=== PATIENT | male | born 1970 | race Caucasian/White ===

== ENCOUNTER 2025-01-30 13:56 | Emergency (ER) | payer BC, SELFPAY ==
[2025-01-30 14:03] VITALS: BP 147/95
[2025-01-30 14:33] LABS: % Basophils 0.3 % (0-2); % Eosinophils 0.7 % (0-6); % Immature Granulocytes 0.5 % (0-0.5); % Lymphocytes 23.7 % (20.5-51.1); % Monocytes 9.2 % (1.7-9.3); % Neutrophils 65.6 % (42.2-75.2); Absolute Eosinophils 0.1 10^3/uL (0-0.7); Absolute Lymphocytes 1.8 10^3/uL (1.2-3.4); Absolute Monocytes 0.7 10^3/uL (0.1-0.6); Hematocrit 41.7 % (39.0-52.0); Hemoglobin 14.3 g/dL (13.0-18.0); Mean Corp Hgb Conc. 34.3 g/dL (33.0-37.0); Mean Corpuscular Hgb 31.1 pg (27.0-31.0); Mean Corpuscular Volume 90.7 fL (80.0-94.0); Mean Platelet Volume 9.4 fL (7.4-10.4); Nucleated Red Blood Cells % 0 % (-); Platelet Count 239 10^3/uL (130-400); Red Cell Dist. Width 13.1 % (11.5-14.5); White Blood Cell Count 7.6 10^3/uL (4.8-10.8)
[2025-01-30 15:05] LABS: ALT (SGPT) 28 U/L (0-50); AST (SGOT) 24 U/L (17-59); Albumin 4.5 g/dl (3.5-5.0); Alkaline Phosphatase 43 U/L (38-126); Blood Urea Nitrogen 23 mg/dl (9-20); Calcium 9.9 mg/dl (8.4-10.2); Carbon Dioxide 24 mmol/L (22-30); Chloride 112 mmol/L (98-107); Glucose 135 mg/dl (70-99); Potassium 4.2 mmol/L (3.5-5.1); Sodium 143 mmol/L (135-145); Total Bilirubin 0.8 mg/dl (0.2-1.3); Total Protein 7.3 g/dl (6.3-8.2); eGFR > 60.00
--- NOTE | 2025-01-30 15:07 | ED.GENMED ---
History of Present Illness
General
Chief Complaint: Heart Rate Problem
Source: patient and spouse
Time Seen by Provider: 01/30/25 14:52
History of Present Illness
History of Present Illness:
This patient is a 54-year-old male who states that ever since he has been having episodes where his heart feels like it is 'racing' also described as 'erratic'. It happens for just a very short period of time, but happens on and off
throughout the day. Sometimes he notices it specifically after eating. He says every morning he feels perfectly fine. He denies associated chest pain or pressure, back pain, neck pain, headache, dizziness, dyspnea, nausea, vomiting, fever,
chills. He denies excessive stimulant use, recent immobilization, recent trauma, leg swelling. Patient does follow with a e commerce specialist regularly as there is family history of early cardiac illness. He takes valsartan and metoprolol for his known
hypertension as well as a daily aspirin. He did have similar symptoms a few years ago, workup was unremarkable at that time
Past History
Past History
ED Past Medical History: GERD, HTN, Hypercholesterolemia and Other (lanny)
ED Past Surgical History: None
Social History
Tobacco: Non-smoker
Alcohol: Occasional (2-3 beers every other day (on average))
Drug: None
Personal:
Living: with family
Employment: Employed (beer salesman)
Phy Exam
Physical Exam
Physical Exam:
GENERAL: Alert , in no apparent distress
EYE: pupils equal and reactive
NECK: Supple, no significant adenopathy.
ENT: o/p clr, mmm.
CARDIAC: Regular rate and rhythm .
LUNGS: Clear breath sounds bilaterally, no acute respiratory distress, no wheezes/rales/rhonchi
ABDOMEN: Soft, without focal tenderness, no r/g, no cvat
NEUROLOGICAL: Alert and oriented, no focal neuro deficits
SKIN: Warm and dry, skin intact.
MUSCULOSKELETAL: No edema, well perfused.
PSYCH: Normal and appropriate interaction.
Course
Orders/Labs/Results
Orders:
Orders
01/30/25 14:05
ECG [Electrocardiogram (*1)] Urgent
Reason for Study: Tachycardia
01/30/25 14:06
EKG- Treatment ONCE
01/30/25 14:19
Complete Blood Count/With Diff Urgent
Comprehensive Metabolic Panel Urgent
Magnesium Urgent
TSH Reflex To Free T4 Urgent
Abnormal Lab Results
01/30/25
14:19
RBC 4.60 L 10^6/uL
(4.70-6.10)
MCH 31.1 H pg
(27.0-31.0)
Absolute Monos (auto) 0.7 H 10^3/uL
(0.1-0.6)
Chloride 112 H mmol/L
(98-107)
BUN 23 H mg/dl
(9-20)
Glucose 135 H mg/dl
(70-99)
01/30/25 14:19
01/30/25 14:19
Vital Signs
Initial and Last Documented VS:
Initial Vital Signs
Temp Pulse Resp BP Pulse Ox
98.0 F 100 20 147/95 99
01/30/25 14:03 01/30/25 14:03 01/30/25 14:03 01/30/25 14:03 01/30/25 14:03
Last Documented Vital Signs
Temp Pulse Resp BP Pulse Ox
98.0 F 100 20 147/95 99
01/30/25 14:03 01/30/25 14:03 01/30/25 14:03 01/30/25 14:03 01/30/25 14:03
*Critical Care Note
Total Time (30-74mins, 75-104mins- exclusive of procedures): Not Applicable
Update Note
Update Note:
Patient presents to the Emergency Department with erratic heart rate
Number and Complexity of Problems Addressed at the Encounter
� Chronic conditions affecting care:
� Acute Exacerbation and/or Progression of Chronic Illness:
� Differential Diagnosis includes: But not limited to SVT, PVCs, A-fib, a flutter, ACS, hyperthyroidism, etc. etc.
Amount and/or Complexity of Data to be Reviewed and Analyzed
� I performed an independent evaluation of and my interpretation is:
EKG: Read by me, normal sinus rhythm, occasional PVCs, no acute ischemia
CT:
Xrays:
Laboratory Studies: Generally unremarkable
Other:
� Review of other/old records reveals:
� Clinical information was obtained by an independent historian: who is bedside
� Prescriptions/Medications Considered but not given:
� Further testing considered but not performed:
Risk of Complications and/or Morbidity or Mortality of Patient Management
� Social determinants of health affecting care: Patient has cell phone of his e commerce specialist which he provided to me however when I reached out to him I got voicemail.
� Discussion with other providers (PCP, Hospitalists, Consultants, etc):
� Escalation of care including admission/observation vs risk of discharge considered: Patient given copy of his ECG, labs will be printed out with his discharge paperwork. Rhythm has been normal here with just occasional PVCs.
Consideration for increasing his atenolol, which would not necessarily be unwarranted given his blood pressure is actually slightly higher than normal. Do not clinically suspect worrisome arrhythmia or ACS. Discussed with patient portance of
follow-up and reasons to return to the ER.
ED Attending Note
-
Portions of this chart may have been created with voice recognition software.� Occasional wrong word or��sound alike� substitutions may have occurred due to the inherent limitations of voice recognition software.
Discharge Plan
Departure
Patient Disposition: Home (Routine Discharge)
Date of Disposition: 01/30/25
Time of Disposition: 15:41
Patient with high blood pressure during this ER visit?: Yes
Condition: Good
Discharge Problem:
Heart palpitations
Instructions: Palpitations (DC), BLOOD PRESSURE
Prescriptions:
No Action
pantoprazole 40 MG tablet,delayed release (DR/EC)
40 mg PO DAILY
amlodipine-benazepril 1 EACH capsule
1 ea PO Daily
aspirin 81 MG tablet,chewable
81 mg PO DAILY
multivitamin with folic acid [Tab-A-Nga] 1 TABLET tablet
1 tab PO DAILY
fish,bora,flax oils-om3,6,9no1 [Ulysses 3-6-9] 1,200 MG capsule
1,200 mg PO BID
oyoy-jmc-kqw-cfz-liqp-rlci-pec [Fiber 6] 1,000 MG tablet
2 tab PO DAILY
Referrals:
PRIVATE,PHYSICIAN [Family Provider, Internal Medicine]
Activity Restrictions/Additional Instructions:
PLEASE CONTACT YOUR SNELLER HAND FOR PROMPT FOLLOW-UP. IF YOU DEVELOP DIZZINESS, CHEST PAIN OR PRESSURE, SHORTNESS OF BREATH, INCREASING PALPITATIONS, FEVER, LEG SWELLING, VOMITING, OR OTHER WORRISOME SIGNS, PLEASE RETURN TO THE ER IMMEDIATELY!
Interventions
Interventions:
*General Assessment Last Done: 01/30/25 14:03
Discharge Date and Time
Print Language: TAMAZIGHT
[2025-01-30 15:26] VITALS: BP 136/91
[2025-01-30 15:32] VITALS: BMI 30.1
[2025-01-30 16:00] VITALS: BP 130/87
== END 2025-01-30 16:34 | disposition home or self-care (01) ==
LOC: EMR 13:56
PROVIDERS: Emergency Medicine; EMERGENCY PHYSICIAN Emergency Medicine
DX: R00.2 Palpitations (principal); I10 Essential (primary) hypertension; Z79.82 Long term (current) use of aspirin
CPT/HCPCS: 99284; 80053; 83735; 84443; 85025; 93005